=== PATIENT | male | born 2000 | race African-American/Black ===

== ENCOUNTER 2024-11-12 18:21 | Inpatient (IN) | payer OTHER ==
[2024-11-12 18:48] VITALS: BMI 20.8
[2024-11-12] MEDS ORDERED: LOPERAMIDE HCL 2 MG CAPSULE PO PRN (19:36)
[2024-11-12] MEDS ORDERED: NICOTINE POLACRILEX 2 MG GUM BUC PRN (19:36)
[2024-11-12] MEDS ORDERED: BISMUTH SUBSALICYLATE 524 MG/30 ML PO PRN (19:36)
[2024-11-12] MEDS ORDERED: IBUPROFEN 600 MG TABLET (FP) PO PRN (19:36)
[2024-11-12] MEDS ORDERED: BENZONATATE 200 MG CAPSULE PO PRN (19:36)
[2024-11-12] MEDS ORDERED: ONDANSETRON *ODT* 4 MG TABLET SL PRN (19:36)
[2024-11-12] MEDS ORDERED: MAG HYDROX/AL HYDROX/SIMETH 30 ML UNIT-DOSE CUP PO PRN (19:36)
[2024-11-12] MEDS ORDERED: BENZOCAINE/MENTHOL (CHLORASEPTIC ) LOZENGE MM PRN (19:36)
[2024-11-12] MEDS ORDERED: NICOTINE POLACRILEX 2 MG LOZENGE BC PRN (19:36)
[2024-11-12] MEDS ORDERED: IBUPROFEN 400 MG TABLET (FP) PO PRN (19:36)
[2024-11-12] MEDS ORDERED: POLYETHYLENE GLYCOL (HEALTHYLAX) 3350 17 GM PACKET PO PRN (19:36)
[2024-11-12] MEDS ORDERED: METHOCARBAMOL 500 MG TABLET PO PRN (19:36)
[2024-11-12] MEDS ORDERED: DICYCLOMINE HCL 10 MG CAPSULE PO PRN (19:36)
[2024-11-12] MEDS ORDERED: MAGNESIUM HYDROX 2400MG/30ML ORAL SUSPENSION 30 ML CUP PO PRN (19:36)
[2024-11-12] MEDS ORDERED: NALOXONE (NARCAN) HCL 4 MG/0.1 ML SPRAY NS PRN (19:36)
[2024-11-12] MEDS ORDERED: hydrOXYzine PAMOATE 25 MG CAPSULE (FP) PO PRN (19:36)
[2024-11-12] MEDS ORDERED: guaiFENesin 600 MG TABLET.ER (FP) PO PRN (19:36)
[2024-11-12] MEDS ORDERED: ACETAMINOPHEN 325 MG TABLET (FP) PO PRN (19:36)
[2024-11-12] MEDS: MELATONIN 5 MG TABLETS PO SCH (23:15)
[2024-11-12] MEDS: levETIRAcetam 500 MG TABLET (FP) PO SCH (23:15)
[2024-11-12] MEDS: THIAMINE 100 MG TABLET PO SCH (23:15)
[2024-11-13] MEDS: PRENATAL VITAMINS W/ FOLIC ACID TABLET (FP) PO SCH (09:40)
[2024-11-13 11:46] LABS: HEMATOCRIT 45.2 % (40.1-51.0); HEMOGLOBIN 14.7 g/dL (13.7-17.5); MCHC 32.5 g/dl (32.3-36.5); MEAN CELL VOLUME 92.4 fl (79.0-92.2); MEAN PLT VOLUME 9.9 fl (9.4-12.4); PLATELET COUNT 249 x10^3/uL (163-337); RDW 12.3 % (11.9-15.3)
[2024-11-13 11:49] LABS: CHLORIDE 108 mmol/L (98-107); POTASSIUM 4.2 mmol/L (3.5-5.1); SODIUM 140 mmol/L (136-145)
[2024-11-13 12:22] LABS: ALBUMIN 4.7 g/dl (3.4-5.0)
[2024-11-13 12:25] LABS: ANION GAP 8 mmol/L (4-13); BLOOD UREA NITROGEN 12.7 mg/dL (7-18); CALCIUM 9.5 mg/dL (8.5-10.1); CO2 23 mmol/L (21-32); GLUCOSE,RANDOM 103 mg/dL (74-106)
[2024-11-13 12:28] LABS: SGPT/ALT 20 U/L (13-61)
[2024-11-13 12:29] LABS: SGOT/AST 15 U/L (15-37); TOT PROT 7.5 g/dl (6.4-8.2)
[2024-11-13 12:31] LABS: ALK PHOS 63 U/L (45-117)
[2024-11-14 12:28] VITALS: BP 133/92; PULSE 60; RESP 16; TEMP 96.8
== END 2024-11-14 09:06 | disposition home or self-care (01) | DRG 773 ==
LOC: YASAS 18:21 → Y3N 20:05
PROVIDERS: ADMIT Allergy & Immunology; ATTEND Allergy & Immunology
PROC: HZ2ZZZZ Detoxification Services for Substance Abuse Treatment (ICD-10-PCS; principal; 2024-11-12)
DX: F11.23 Opioid dependence with withdrawal (principal); F13.20 Sedative, hypnotic or anxiolytic dependence, uncomplicated; F12.20 Cannabis dependence, uncomplicated; F17.210 Nicotine dependence, cigarettes, uncomplicated; F41.9 Anxiety disorder, unspecified; Z59.00 Homelessness unspecified
CPT/HCPCS: 36415; 80053; 80305; 80307; 85027; 86780; 93005; 93010